=== PATIENT | female | born 1965 | race African-American/Black ===

== ENCOUNTER 2017-02-10 14:32 | Outpatient (CLI) | payer BC, OTHER ==
--- NOTE | 2017-02-14 11:47 | PET Report ---
PET SB TO MT INITIAL: HISTORY: Left breast cancer. TECHNIQUE: 14.9 millicuries F-18 FDG was administered intravenously. Noncontrast CT images and PET images were obtained from the skull base to the proximal thighs. Fused images were reviewed on a workstation. The patient's blood glucose level measured 108. COMPARISON: None at this facility. FINDINGS: BRAIN: physiologic FDG uptake in the imaged brain. NECK: physiologic FDG uptake. CHEST WALL: Surgical changes are identified in the lateral left breast. There is mild residual uptake at the surgical site with Max SUV measuring 2.5. No discrete nodule, mass or enlarged lymph node is identified in this area. This is presumably secondary to surgery. MEDIASTINUM: physiologic FDG uptake. LUNGS: physiologic FDG uptake. PLEURA/PERICARDIUM: physiologic FDG uptake. THORACIC LYMPH NODES: physiologic FDG uptake. HEPATOBILIARY: physiologic FDG uptake. Mean liver SUV measures . PANCREAS: physiologic FDG uptake. SPLEEN: physiologic FDG uptake. ADRENAL GLANDS: physiologic FDG uptake. KIDNEYS/RENAL COLLECTING SYSTEMS: physiologic FDG uptake. BOWEL/MESENTERY: physiologic FDG uptake. PELVIC VISCERA: physiologic FDG uptake. ABDOMINAL/PELVIC LYMPH NODES: physiologic FDG uptake. MUSCULOSKELETAL: physiologic FDG uptake. IMPRESSION: Negative PET/CT. Surgical changes in the lateral left breast is described above. No convincing evidence for disease recurrence or metastasis.
== END 2017-02-10 14:33 | disposition home or self-care (01) ==
LOC: PET 14:32
PROVIDERS: ATTEND Internal Medicine Hematology & Oncology
DX: C50.412 Malignant neoplasm of upper-outer quadrant of left female breast (principal); Z79.899 Other long term (current) drug therapy
CPT/HCPCS: 78815; 82962; A9552

== ENCOUNTER 2018-05-26 08:03 | Outpatient (CLI) | payer OTHER ==
--- NOTE | 2018-05-26 10:33 | Ultrasound Report ---
ULTRASOUND TRANSVAGINAL HISTORY: Lower abdominal pain, pelvic pain. COMPARISON: None. TECHNIQUE: Transabdominal and transvaginal ultrasound with color doppler interrogation. FINDINGS: Uterus: The uterus is anteverted. The uterus measures 5.0 x 3.5 x 4.7 cm. A 2.2 cm intramural fibroid is identified in the anterior fundus. A 2.0 cm subserosal fibroid is identified in the posterior wall. No evidence for cystic change or calcific degeneration. Endometrium: 4 mm. Right ovary: 2.2 x 1.4 x 1.9 cm. No focal abnormality. Left ovary: 2.3 x 1.4 x 1.3 cm. No focal abnormality. No pelvic fluid or mass is identified. Normal color doppler interrogation. IMPRESSION: Mild uterine fibroid disease as described above. Normal endometrium and ovaries.
== END 2018-05-26 08:04 | disposition home or self-care (01) ==
LOC: US 08:03
PROVIDERS: ATTEND Family Medicine
DX: D25.2 Subserosal leiomyoma of uterus (principal)
CPT/HCPCS: 76830